=== PATIENT | male | born 1955 | race Caucasian/White ===

== ENCOUNTER 2016-12-26 06:39 | Day surgery (SDC) | payer BC ==
[2016-12-26] MEDS ORDERED: LIDOCAINE 2% MDV (20MG/ML) 20ML VIAL IV ONE ×2 (10:19→14:00)
[2016-12-26] MEDS ORDERED: TETRACAINE HCL 0.5% 15 ML OPTH BTL OPTH ONE (10:19)
[2016-12-26] MEDS ORDERED: EPINEPHRINE 1 MG/ML AMPUL SQ ONE (10:19)
[2016-12-26] MEDS ORDERED: NEOMYCIN/POLY./DEXAM OPTH OINT OPTH ONE (10:19)
[2016-12-26] MEDS ORDERED: PROPOFOL 10 MG/ML VIAL IV ONE (14:00)
--- NOTE | 2016-12-26 15:37 | OP NOTE CHAMES ---
DATE OF PROCEDURE: 12/26/16 PREOPERATIVE DIAGNOSIS: Posterior subcapsular cataract, left eye. POSTOPERATIVE DIAGNOSIS: Posterior subcapsular cataract, left eye. OPERATION: Phacoemulsification of cataractous lens with implantation of intraocular lens. LENS IMPLANT USED: Hansen Model PCB00 + 16.5 diopters. COMPLICATIONS: None. PROCEDURE IN DETAIL: Following a retrobulbar and facial block, the patient was prepped and draped in the usual fashion for eye surgery. A lid speculum was placed in the left eye after which a 2.4 mm tunnel wound was placed at the temporal limbus and dissected into clear cornea. A paracentesis was placed at 2 oclock hours to the left and right of the initial incision and the chamber deepened with Viscoelastic. The keratome was then used to enter the anterior chamber after which the continuous circular capsulorrhexis was accomplished without difficulty using a bent needle and a Utrata forceps. Hydrodissection and hydrodelineation of the lens was performed after which the nucleus of the lens was removed using the Phaco handpiece in the [id number] technique. The residual cortical material was irrigated and aspirated from the eye after which the bag and chamber were re-examined. The bag was re-inflated with Viscoelastic and the intraocular lens injected into the capsular bag where it centered well. The Viscoelastic was then copiously irrigated and aspirated from the eye after which the temporal tunnel wound and paracentesis were hydrated and the wounds were examined. They were noted to be watertight. The lid speculum was removed from the eye and the eye patched and shielded. The patient was transferred to the recovery room in satisfactory condition and given an appointment to be reexamined in the clinic later today or as directed by Dr. Jiang. Daryl Jiang M.D. Date & Time JOB NUMBER: [id number] MTDD
== END 2016-12-26 09:43 | disposition home or self-care (01) ==
LOC: SUR 06:39
PROVIDERS: ATTEND Ophthalmology
DX: H25.042 Posterior subcapsular polar age-related cataract, left eye (principal); E11.9 Type 2 diabetes mellitus without complications; Z79.4 Long term (current) use of insulin; I10 Essential (primary) hypertension
CPT/HCPCS: J0171

== ENCOUNTER 2017-01-09 06:10 | Day surgery (SDC) | payer BC ==
[2017-01-09] MEDS ORDERED: DICLOFENAC SODIUM 2.5 ML DROPS OPTH ONE (10:47)
[2017-01-09] MEDS ORDERED: TROPICAMIDE 1% 15ML BTL OP ONE (10:47)
[2017-01-09] MEDS ORDERED: LIDOCAINE 2% MDV (20MG/ML) 20ML VIAL IV ONE ×2 (10:47→12:58)
[2017-01-09] MEDS ORDERED: EPINEPHRINE 1 MG/ML AMPUL SQ ONE (10:47)
[2017-01-09] MEDS ORDERED: PREDNISOLONE ACETATE 1% OPTH 10ML BOTTLE OPTH ONE (10:47)
[2017-01-09] MEDS ORDERED: NEOMYCIN/POLY./DEXAM OPTH OINT OPTH ONE (10:47)
[2017-01-09] MEDS ORDERED: TETRACAINE HCL 0.5% 15 ML OPTH BTL OPTH ONE (10:47)
[2017-01-09] MEDS ORDERED: PHENYLEPHRINE HCL 10% OPTH BTL OPTH ONE (10:47)
[2017-01-09] MEDS ORDERED: TOBRAMYCIN 0.3% OPTH DROP 5 ML BTL OPTH ONE (10:47)
[2017-01-09] MEDS ORDERED: PROPOFOL 10 MG/ML VIAL IV ONE (12:58)
--- NOTE | 2017-01-09 15:54 | OP NOTE CHAMES ---
DATE OF PROCEDURE: 01/09/17 PREOPERATIVE DIAGNOSES: 1. Nuclear sclerotic cataract, right eye. 2. Stigmatism, right eye. POSTOPERATIVE DIAGNOSES: 1. Nuclear sclerotic cataract, right eye. 2. Stigmatism, right eye. OPERATION: Cataract extraction with implantation of Toric intraocular lens. LENS IMPLANT USED: Hansen Model THJ696 axis of lens placement 114 degrees. COMPLICATIONS: None. PROCEDURE IN DETAIL: Following a retrobulbar and facial block, the patient was prepped and draped in the usual fashion for eye surgery. A lid speculum was placed in the right eye after which a 2.4 mm tunnel wound was placed at the temporal limbus and dissected into clear cornea. A paracentesis was placed at 2 oclock hours to the left and right of the initial incision and the chamber deepened with Viscoelastic. The keratome was then used to enter the anterior chamber after which the continuous circular capsulorrhexis was accomplished without difficulty using a bent needle and a Utrata forceps. Hydrodissection and hydrodelineation of the lens was performed after which the nucleus of the lens was removed using the Phaco handpiece in the [id number]-ach-[id number] technique. The residual cortical material was irrigated and aspirated from the eye after which the bag and chamber were re-examined. The bag was re-inflated with Viscoelastic and the intraocular lens injected into the capsular bag where it centered well. The Viscoelastic was then copiously irrigated and aspirated from the eye after which the temporal tunnel wound and paracentesis were hydrated and the wounds were examined. They were noted to be watertight. The lid speculum was removed from the eye and the eye patched and shielded. The patient was transferred to the recovery room in satisfactory condition and given an appointment to be reexamined in the clinic later today or as directed by Dr. Jiang. Daryl Jiang M.D. Date & Time JOB NUMBER: [id number] [facility]
== END 2017-01-09 09:04 | disposition home or self-care (01) ==
LOC: SUR 06:10
PROVIDERS: ATTEND Ophthalmology
DX: H25.11 Age-related nuclear cataract, right eye (principal); H52.221 Regular astigmatism, right eye; E10.9 Type 1 diabetes mellitus without complications; Z79.4 Long term (current) use of insulin; I10 Essential (primary) hypertension
CPT/HCPCS: J0171

== ENCOUNTER 2017-08-07 07:30 | Inpatient (IN) | payer BC ==
[~2017-08-07 07:30] MED LIST: ACETAMINOPHEN 1,000 MG/100 ML BTL IV ONE; CEFAZOLIN 2 Gram 2 GM/50 ML BAG IVPB ONE; FAMOTIDINE 20MG TABLET PO ONE; MECLIZINE 25 MG TABLET PO ONE; METOCLOPRAMIDE 10 MG TABLET PO ONE
[2017-09-11] MEDS ORDERED: MECLIZINE 25 MG TABLET PO ONE (06:00)
[2017-09-11] MEDS ORDERED: ACETAMINOPHEN 1,000 MG/100 ML BTL IV ONE (06:00)
[2017-09-11] MEDS ORDERED: FAMOTIDINE 20MG TABLET PO ONE (06:00)
[2017-09-11] MEDS ORDERED: CEFAZOLIN 2 Gram 2 GM/50 ML BAG IVPB ONE (06:00)
[2017-09-11] MEDS ORDERED: METOCLOPRAMIDE 10 MG TABLET PO ONE (06:00)
[2017-09-11] MEDS ORDERED: DIAZEPAM 5 MG TABLET PO PRN (11:13)
[2017-09-11] MEDS ORDERED: METOCLOPRAMIDE HCL 10 MG/2 ML VIAL IVP PRN (11:15)
[2017-09-11] MEDS ORDERED: ZOLPIDEM TARTRATE 5 MG TABLET PO PRN (11:15)
[2017-09-11] MEDS ORDERED: MAGNESIUM HYDROXIDE 30 ML UDC PO PRN (11:15)
[2017-09-11] MEDS ORDERED: ONDANSETRON HCL IV 4 MG/2 ML VIAL IVP PRN (11:15)
[2017-09-11] MEDS ORDERED: SENNOSIDES/DOCUSATE SODIUM UD CAPSULE PO PRN (11:15)
[2017-09-11] MEDS ORDERED: AL HYDROX/MAG HYDROX 30ML UD PO PRN (11:15)
[2017-09-11] MEDS ORDERED: TRAMADOL HCL 50 MG TABLET PO PRN ×2 (11:15)
[2017-09-11] MEDS ORDERED: DIPHENHYDRAMINE HCL 25 MG CAPSULE PO PRN (11:15)
[2017-09-11] MEDS ORDERED: RINGERS SOLUTION,LACTATED 1,000 ML IV PRN (11:54)
--- NOTE | 2017-09-11 12:30 | Operative Note ---
DATE OF SURGERY: 09/11/2017 Surgeon: Chase Davis DO PREOPERATIVE DIAGNOSIS: Primary osteoarthritis of the left knee. POSTOPERATIVE DIAGNOSIS: Primary osteoarthritis of the left knee. OPERATION: Left total knee arthroplasty. DESCRIPTION OF PROCEDURE: This 62-year-old male was taken to the operating room, placed in the supine position on the operating room table. Spinal anesthesia was induced by department of anesthesia. The left lower extremity was then elevated, prepped with Hibiclens and draped in the usual sterile fashion. It was exsanguinated and the tourniquet inflated to 300 mmHg. All scrub personnel wore personal isolation suits. An anterior longitudinal midline incision was made followed by a medial parapatellar arthrotomy incision. An intracondylar drill hole was made for the intramedullary alignment edmar and a 10 mm 6-degree valgus cut was made in the distal femur. The patient had very slight flexion contracture, so we took an additional millimeter off the distal femur. The sizing jig was affixed and a size 72 was seen to be the appropriate size. The 4-in-1 cutting block was affixed and pinned in 3 degrees of external rotation. The appropriate cuts were made. The wafers of bone were removed. We then directed our attention to the proximal tibia, and an extramedullary alignment guide was used to cut the proximal tibia referencing a 10 mm cut off the lateral tibial plateau. However, once the block h ad been pinned in the appropriate position, we found that we would not get below subchondral bone with a saw, so an additional 2 mm was taken. Wafers of bone were removed. Remnants of the menisci and osteophytes were removed from the posterior aspect of the joint. The tibia was sized to an 83 and stem punch was used. The trial components were then inserted and a 10 mm bearing was seen to be the appropriate size. The 11 was absolutely too thick. The knee was taken through range of motion and found to be stable. The patella was cut and restored to anatomic height with a 37 x 8.6 mm trial and excellent stability of the patellofemoral joint was noted. The joint was then copiously irrigated with lactated Ringer's solution. Exparel was injected into the posterior, medial, and lateral corners of the joint. All bony surfaces were dried after irrigation and all components were cemented into place and excess removed after the insertion of each component. Initially, the tibial baseplate was cemented followed by the insertion of the tibial bearing, femoral component, and finally the patella. Once the cement had hardened, the knee was again taken through range of motion and found to be stable. Exparel was injected into the periosteum and joint capsule, the proximal tibia and distal femur at this point. A drain was placed through a separate stab incision. The arthrotomy incision was closed with a #2 Vicryl. The subcutaneous tissue was closed with 0 Vicryl and the skin was stapled. Sterile dressings were applied and Polar Care applied. The patient was taken to the recovery room in satisfactory condition. GROSS PATHOLOGY: This patient demonstrated severe medial compartment articular cartilage loss both on the tibia and the femur. Full-thickness defects were present with grade 2 changes noted at the patellofemoral joint and lateral compartment. Final components inserted were a [employer] Vanguard size 72.5 cruciate retaining femur, an 83 tibial baseplate, a 10 mm anterior stabilized D1 bearing, and a 37 x 8.6 mm patella was used. CC: DO CALI Villasenor
[2017-09-11] MEDS ORDERED: TRANEXAMIC ACID 1,000 MG in 0.9 % SODIUM CHLORIDE 100ML 100 ML IVPB ONE (13:00)
[2017-09-11] MEDS: PATIENT OWN MED: AMLODIPINE 10 MG PO SCH (13:21)
[2017-09-11] MEDS: OXYCODONE HCL 5 MG TABLET PO PRN ×3 (14:03→20:14)
[2017-09-11] MEDS: RINGERS SOLUTION,LACTATED 1,000 ML IV SCH (14:46)
[2017-09-11] MEDS: ACETAMINOPHEN 1,000 MG/100 ML BTL IV SCH ×2 (15:22→20:16)
[2017-09-11] MEDS ORDERED: BUPIVACAINE 0.75% W/EPI MPF 30ML VIAL IVP ONE (15:36)
[2017-09-11] MEDS ORDERED: BUPIVACAINE LIPOSOME 266MG/20ML VIAL IV ONE (15:36)
[2017-09-11] MEDS ORDERED: TRANEXAMIC ACID 1,000 MG/10 ML ML IV ONE (15:36)
[2017-09-11] MEDS: FONDAPARINUX 2.5 MG/0.5 ML SYR SQ SCH (17:23)
[2017-09-11] MEDS: CEFAZOLIN 2 Gram 2 GM/50 ML BAG IVPB SCH (17:23)
[2017-09-11] MEDS: HYDROMORPHONE HCL 1 MG/ML SYRINGE IVP PRN ×2 (18:38→22:31)
--- NOTE | 2017-09-11 18:47 | Rehab Evaluation ---
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 LEFT CAT right cataract HEART CATH PMH - Respiratory Hx Respiratory Disorders Yes Hx Bronchitis Yes: in past Hx Dyspnea Yes Hx Sleep Apnea Yes Hx of CPAP Yes Hx of SOB Yes: exertional only mild Hx of Oxygen Therapy No PMH - Cardiovascular Hx Cardiovascular Disorders Yes Hx Abnormal EKG Yes Hx Cardiac Catheterization Yes: negative cath. Hx Chest Pain Yes Hx Edema Yes: left ankle alittle Hx Hypertension Yes: good control with meds Hx Irregular Heartbeat Yes: "heart arrythmia after chemo, pt noted. regular irregular arrhythmia. benign Hx Palpitations Yes Hx Vascular Disease Yes: "leaky valve" long time ago Hx Coronary Artery Disease Yes: poss "2 blockages" per Dr Onofre. negative per heart cath. 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 possibly related to meds.resolved? 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 PMH - Musculoskeletal Hx Musculoskeletal Disorders Yes Hx Arthritis Yes: left knee PMH - Psych Hx Psychiatric Problems No PMH - Hematology/Oncology Hx Hematology/Oncology Yes Disorders Hx Cancer Yes: non hodgekins lymphoma Dx 2003. 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 He has raised toilet seat, grab bar, standard tub/shower combination and has tub bench.) Precautions: [place], Fall - Time With Patient Total Time Spent With Patient (Min): 60 Treatment Procedures: Detail (PT Evaluation, gait training, therapeutic activity ) Subjective Information - Subjective Information Per Patient (Pt stated pain was 2/10 at rest, 7/10 while walking. Denied nausea or lightheadedness.) Objective Data - Pain Pain Present: Yes Pain Intensity: 7 (While walking) Pain Scale Used: Numeric (1 - 10) - Mental Status Patient Orientation: Oriented x3 - Visual Perception Appears within normal limits for therapeutic activities - ROM Not within normal limits (L hip and ankle ROM are WNL, L knee has mild knee flexion contracture (about 10 degrees) and CPM is set to 70 degrees flexion and pt is tolerating well w/o discomfort.) - Strength/Tone Not within normal limits (Able to lift L LE out of and back into CPM independently; grossly 4/5 L hip flexion, abduction, adduction and extension, L ankle motions, and 3-/5 L knee flexion and extension. R LE ms groups are grossly 4+/5.) - Coordination Appears within normal limits for therapeutic activities - Bed Mobility Needs Assist (CGA for L LE out of CPM and out of bed and back into bed and CPM. Used trapeze to position self in bed after adjusting CPM.) - Transfers Needs Assist (VCs for proper hand placement on bed and walker.) - Balance Balance Sitting: Good Balance Standing: Good - Sensation Intact - Gait Detail (Ambulated to bathroom for attempt at urination, then from bathroom out to hallway past nursing station to hallway by room 19 and back to bathroom ( about 125 feet total), w/standard walker and CGA and VCs for proper technique. Has wheels for walker at home but wanted to use walker w/o wheels initially.) Therapy Assessment - Therapy Assessment Detail (Pt ambulated well for immediate post-op status, but he exhibits mobility impairments consistent with post-surgical condition. He is a good candidate for physical therapy.) Patient Education - Patient Education Teaching Topic: Disease Process, Equipment Use, Exercise/Activity Response: Return Demonstration, Reinforcement Needed, Verbalize Understanding Teaching Method: Discussion, Demonstration, Handout Teaching Recipient: Patient, Family Barriers To Learning: None Problem List - Problem List Physical Therapy Problem List: Detail (1. Impaired bed mobility; 2. Impaired transfers; 3. Difficulty walking; 4. Decreased ROM L knee; 5. Decreased strength L LE.) Goals - Goals Physical Therapy Goals: 1. Pt will safely and independently get in and out of bed. 2. Pt will be independent with sit/stand transfers. 3. Pt will ascend/ descend three steps w/walker and handrail w/SBA. 4. Pt will safely ambulate household distances w/standard walker. 5. Pt will demonstrate good understanding of beginning home program. Prognosis - Prognosis Good Plan - Plan Physical Therapy Plan: Pt will be seen twice tomorrow for bed mobility and transfer training, review of home exercise program, and gait training on stairs.
[2017-09-12] MEDS: ACETAMINOPHEN 1,000 MG/100 ML BTL IV SCH (03:53)
[2017-09-12] MEDS: OXYCODONE HCL 5 MG TABLET PO PRN ×2 (03:56→08:16)
[2017-09-12] MEDS: CEFAZOLIN 2 Gram 2 GM/50 ML BAG IVPB SCH ×2 (04:01→09:48)
[2017-09-12 06:41] LABS: HEMATOCRIT 33.7 % (42.0-52.0); MEAN CELL VOLUME 84.9 fl (81-97); MEAN CORPUSCULAR HEMOGLOBIN 27.7 pg (27-33); MEAN CORPUSCULAR HGB CONC 32.6 g/dl (32-36); MEAN PLATELET VOLUME 10.3 fl (7.4-10.4); PLATELET COUNT 216 K/uL (130-400); RED BLOOD COUNT 3.97 M/uL (4.40-5.70); RED CELL DISTRIBUTION WIDTH 13.8 % (11.5-14.5); WHITE BLOOD COUNT W/O DIFF 6.9 K/uL (4.2-12.2)
[2017-09-12] MEDS: HYDROMORPHONE HCL 1 MG/ML SYRINGE IVP PRN ×2 (09:48→11:21)
[2017-09-12] MEDS: RINGERS SOLUTION,LACTATED 1,000 ML IV SCH (09:52)
[2017-09-12] MEDS: PATIENT OWN MED: AMLODIPINE 10 MG PO SCH (09:53)
[2017-09-12] MEDS ORDERED: HCTZ PO SCH (10:00)
[2017-09-12] MEDS ORDERED: LOSARTAN PO SCH (10:00)
--- NOTE | 2017-09-12 10:27 | Rehab Evaluation ---
Patient Information - Patient Information Diagnosis: OA L knee s/p TKA Ordered Treatment: OT Evaluate and Treat Status: Initial Evaluation Surgery: Yes (L TKA) Date of Surgery: 09/11/17 History: Detail (Pt was experiencing progressive degeneration and worsening pain of L knee over the past six months.) Past Med/Sparkle Hx Detail: Detail Past Medical/Surgical Hx: PAST MEDICAL/SURGICAL HISTORY Past Surgical History infusaport left chest-for chemo Rx; x's 2 2014 bx left lymph node-nonhodgekins lymphoma; colonoscopy-several; trigger finger releases bilat (7 fingers); bone marrow bx. LEFT CAT right cataract HEART CATH PMH - Respiratory Hx Respiratory Disorders Yes Hx Bronchitis Yes: in past Hx Dyspnea Yes Hx Sleep Apnea Yes Hx of CPAP Yes Hx of SOB Yes: exertional only mild Hx of Oxygen Therapy No PMH - Cardiovascular Hx Cardiovascular Disorders Yes Hx Abnormal EKG Yes Hx Cardiac Catheterization Yes: negative cath. Hx Chest Pain Yes Hx Edema Yes: left ankle alittle Hx Hypertension Yes: good control with meds Hx Irregular Heartbeat Yes: "heart arrythmia after chemo, pt noted. regular irregular arrhythmia. benign Hx Palpitations Yes Hx Vascular Disease Yes: "leaky valve" long time ago Hx Coronary Artery Disease Yes: poss "2 blockages" per Dr Onofre. negative per heart cath. 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 possibly related to meds.resolved? 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 PMH - Musculoskeletal Hx Musculoskeletal Disorders Yes Hx Arthritis Yes: left knee PMH - Psych Hx Psychiatric Problems No PMH - Hematology/Oncology Hx Hematology/Oncology Yes Disorders Hx Cancer Yes: non hodgekins lymphoma Dx 2003. 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 He has raised toilet seat, grab bar, standard tub/shower combination and has tub bench. Shower contains curtain enclosure and fixed shower head. Spouse has taken 1 week off of work to be home w/ patient. Could take more days off if needed. Otherwise patient will be home alone until 3:30pm. Pt has taken 2 months off of work.) Precautions: [place], Fall - Time With Patient Total Time Spent With Patient (Min): 20 Treatment Procedures: Detail (Eval LOW OT) Subjective Information - Subjective Information Per Patient (Pt was wanting to go home as soon as possible but reports being a little worried currently due to high pain levels in L knee.) Objective Data - Pain Pain Present: Yes Pain Intensity: 8 (L knee) Pain Scale Used: Numeric (1 - 10) - Mental Status Patient Orientation: Oriented x3 - Visual Perception Appears within normal limits for therapeutic activities - ROM Within normal limits (Matteo UE's) - Strength/Tone Within normal limits (Matteo UE's) - Coordination Appears within normal limits for therapeutic activities - Balance Balance Sitting: Good Balance Standing: Fair (Mild LOB w/ pants car repairer pullman hips but able to self correct quickly.) - Sensation Deficit (Pt reports having some numbness and tingling matteo digits 2^ long hx of CTS.) - Gait Detail (Pt amb. w/ standard walker from EOB<>BR for standing toileting independently.) - ADL's/IADL's Detail (Pt educated and demonstrated independence w/ pants don/doff using modified drsg technique. Pt able to verbalize understanding of modified drsg technique. Discussed wrapping technique of incision when showering to prevent infection. Pt plans to sponge bath until marshal are removed. Pt will have assistance for shoe/sock don/doff.) Therapy Assessment - Therapy Assessment Detail (Pt is independent w/ modified drsg technique. He will have assistance available for sock/shoe don/doff if needed. Pt reports he will sponge bath until marshal are removed and wound is closed, however, he verbalizes understanding of wrapping technique should he decide to shower. Do not anticipate pt needed any further inpatient OT services at this time.) Problem List - Problem List Physical Therapy Problem List: Detail (1. Impaired bed mobility; 2. Impaired transfers; 3. Difficulty walking; 4. Decreased ROM L knee; 5. Decreased strength L LE.) Goals - Goals Physical Therapy Goals: 1. Pt will safely and independently get in and out of bed. 2. Pt will be independent with sit/stand transfers. 3. Pt will ascend/ descend three steps w/walker and handrail w/SBA. 4. Pt will safely ambulate household distances w/standard walker. 5. Pt will demonstrate good understanding of beginning home program. Prognosis - Prognosis Good Plan - Plan Physical Therapy Plan: Pt will be seen twice tomorrow for bed mobility and transfer training, review of home exercise program, and gait training on stairs. Occupational Therapy Plan: No further inpatient OT needed at this time. Pt to be d/c'd from OT.
--- NOTE | 2017-09-12 11:07 | Physical Therapy Tx Note ---
Physical Therapy Tx Note - Treatment Note Tolerated: Good Total Time Spent With Patient: 30 Physical Therapy Tx Note: Detail (The patient was sitting on edge of bed when PT arrived. The patient ambulated with standard walker independently WBAT on the L LE. The patient ambulated on stairs with use of railing and folded walker with supervision for safety only WBAT on the L LE. The patient's HEP was reviewed. The patient has difficulty isolating quads. The patient has completed all inpatient goals and is to continue with PT as an outpatient at [facility]. RN was notified that patient has completed all inpatient PT goals. The patient was left up in chair with call light in reach.) Physical Therapy Problem List: Detail (1. Impaired bed mobility; 2. Impaired transfers; 3. Difficulty walking; 4. Decreased ROM L knee; 5. Decreased strength L LE.) Physical Therapy Goals: 1. Pt will safely and independently get in and out of bed. 2. Pt will be independent with sit/stand transfers. 3. Pt will ascend/ descend three steps w/walker and handrail w/SBA. 4. Pt will safely ambulate household distances w/standard walker. 5. Pt will demonstrate good understanding of beginning home program. Physical Therapy Plan: The patient has completed all inpatient PT goals. The patient is discharged from inpatient PT.
[2017-09-12] MEDS ORDERED: ACETAMINOPHEN 325 MG TAB PO PRN (11:15)
[2017-09-12] MEDS ORDERED: OXYCODONE/APAP 7.5MG/325MG TABLET PO PRN ×2 (11:15)
[2017-09-12] MEDS ORDERED: HYDROCODONE/APAP 7.5/325MG TABLET PO PRN (11:15)
[2017-09-12] MEDS: HYDROCODONE/APAP 7.5/325MG TABLET PO PRN ×3 (12:04→17:46)
[2017-09-12] MEDS ORDERED: LIDOCAINE 2% MDV (20MG/ML) 20ML VIAL IV ONE (14:50)
[2017-09-12] MEDS ORDERED: ONDANSETRON HCL IV 4 MG/2 ML VIAL IVP ONE (14:50)
[2017-09-12] MEDS ORDERED: PROPOFOL 10 MG/ML VIAL IV ONE (14:50)
[2017-09-12] MEDS ORDERED: FENTANYL PF 100MCG/2ML VIAL IV ONE (14:50)
[2017-09-12] MEDS ORDERED: HYDROMORPHONE HCL 2 MG/ML VIAL IV ONE (14:50)
[2017-09-12] MEDS ORDERED: DIPHENHYDRAMINE HCL IV 50 MG/ML VIAL IVP ONE (14:50)
[2017-09-12] MEDS ORDERED: MIDAZOLAM HCL 2MG/2ML VIAL IV ONE (14:50)
[2017-09-12] MEDS: FONDAPARINUX 2.5 MG/0.5 ML SYR SQ SCH (17:46)
--- NOTE | 2017-09-15 12:40 | Discharge Summary ---
DATE OF ADMISSION: 09/11/2017 DATE OF DISCHARGE: 09/12/2017 SURGEON: Chase Davis DO ADMITTING DIAGNOSIS: Osteoarthritis of the left knee. DISCHARGE DIAGNOSIS: Osteoarthritis of the left knee. OPERATIVE PROCEDURE: Elective left total knee arthroplasty. HISTORY OF PRESENT ILLNESS: This 62-year-old male was taken to the operating room for an elective total knee arthroplasty on 09/11/2017, tolerated the operative procedure well, progressed satisfactorily with physical therapy, and was ready for discharge the first postoperative day. The patient showed no signs of complications and was discharged with instructions to wear his CORTEZ hose during the day and remove them at night, have outpatient physical therapy. He will take aspirin 325 mg daily for 2 weeks. He was given a prescription for [place] 7.5/325 #80, 1 or 2 every 6 hours as necessary for pain. Routine wound care instructions were given. He will be seen in the office in 2 weeks. Should he have any problems prior to being seen, he was instructed to call my office. CALI
== END 2017-09-12 17:50 | disposition home or self-care (01) | DRG 470 ==
LOC: MEDSURG 09-11 08:02
PROVIDERS: ADMIT Orthopaedic Surgery; ATTEND Orthopaedic Surgery
PROC: 0SRD069 Replacement of Left Knee Joint with Oxidized Zirconium on Polyethylene Synthetic Substitute, Cemented, Open Approach (ICD-10-PCS; principal; 2017-09-11 10:00)
DX: M17.12 Unilateral primary osteoarthritis, left knee (principal); E10.40 Type 1 diabetes mellitus with diabetic neuropathy, unspecified; Z79.4 Long term (current) use of insulin; Z96.41 Presence of insulin pump (external) (internal); I10 Essential (primary) hypertension; Z85.72 Personal history of non-Hodgkin lymphomas; E10.22 Type 1 diabetes mellitus with diabetic chronic kidney disease; N18.2 Chronic kidney disease, stage 2 (mild)
CPT/HCPCS: 85025; 94760; 97110; 97165; 97530; J1170; J1200; J2405; J3490; J7120